=== PATIENT | male | born 1990 | race African-American/Black ===

== ENCOUNTER 2022-03-07 12:45 | Day surgery (SDC) | payer OTHER, SELFPAY ==
[2022-03-07] MEDS ORDERED: Bupivacaine/Epinephrine 0.25% 30 ML VIAL ONE (15:49)
[2022-03-07] MEDS ORDERED: fentaNYL Citrate/PF 100 MCG/2 ML SYRINGE ONE ×2 (16:36→17:12)
[2022-03-07] MEDS ORDERED: Midazolam HCl 2 mg/2 ml Vial ONE (16:36)
[2022-03-07] MEDS ORDERED: Sodium Chloride 0.9% 100 ML ONE (16:43)
[2022-03-07] MEDS ORDERED: CEFAZOLIN 2 GM VIAL ONE (16:43)
[2022-03-07] MEDS ORDERED: Lidocaine 1% PF 5 ML VIAL ONE (16:57)
[2022-03-07] MEDS ORDERED: Ondansetron PF 4 MG/2 ML Vial ONE (16:57)
[2022-03-07] MEDS ORDERED: Dexamethasone 20 MG/5 ML VIAL ONE (16:57)
[2022-03-07] MEDS ORDERED: PROPOFOL 200 MG/20 ML VIAL ONE (16:57)
[2022-03-07] MEDS ORDERED: Ketorolac Tromethamine 30 MG/ML VIAL ONE (16:57)
[2022-03-07] MEDS ORDERED: Glycopyrrolate 0.2 MG/ML 5 ML SYRINGE ONE (16:57)
[2022-03-07] MEDS ORDERED: Rocuronium Bromide 10 MG/ML (10ML VIAL) ONE (16:57)
[2022-03-07] MEDS ORDERED: SUGAMMADEX SODIUM 200 MG/2 ML VIAL ONE (17:55)
== END 2022-03-07 20:20 | disposition home or self-care (01) ==
LOC: SDC 12:45
PROVIDERS: ATTEND Surgery
PROC: 0DTJ4ZZ Resection of Appendix, Percutaneous Endoscopic Approach (ICD-10-PCS; principal; 2022-03-07)
DX: K35.30 Acute appendicitis with localized peritonitis, without perforation or gangrene (principal); K38.8 Other specified diseases of appendix; F17.210 Nicotine dependence, cigarettes, uncomplicated
CPT/HCPCS: 88304; J0690; J1100; J1885; J2250; J2405; J2704; J2710; J3490